=== PATIENT | female | born 1990 | race Two or more races ===

== ENCOUNTER 2020-11-10 11:34 | Emergency (ER) | payer MEDICAID ==
[~2020-11-10] VITALS: Ht 162.6 cm; Wt 73.5 kg
[~2020-11-10 11:34] MED LIST: PREN-145 OR
[2020-11-10 11:39] VITALS: BP 107/60
[2020-11-10 12:06] LABS: Basophils # (auto) 0 10 ^3/uL (0-0.2); Basophils % (auto) 0.7 % (0.0-2.0); Eosinophils # (auto) 0.1 10 ^3/uL (0-0.8); Eosinophils % (auto) 1.9 % (0.0-7.0); Hematocrit 37.5 % (36.0-46.0); Hemoglobin 13.3 g/dL (12.2-16.2); Lymphocytes % (auto) 33.4 % (10.0-50.0); Mean Corpuscular Hemoglobin 31.7 pg (28.0-32.0); Mean Corpuscular Hgb Conc. 35.5 g/dL (32.0-36.0); Mean Corpuscular Volume 89.4 fL (80.0-100.0); Monocytes # (auto) 0.4 10 ^3/uL (0-1.3); Monocytes % (auto) 7.2 % (0.0-12.0); Neutrophils # (auto) 3.4 10 ^3/uL (1.6-8.6); Neutrophils % (auto) 56.8 % (37.0-80.0); Nucleated Red Blood Cells % 0.1 %; Red Blood Cells 4.19 10^6/uL (4.0-5.20); Red Cell Distribution Width 12.4 % (11.8-14.3)
[2020-11-10 13:11] LABS: Urine Bacteria NONE SEEN /hpf (None Seen); Urine Blood Negative /uL (Negative); Urine Mucus FEW (None Seen); Urine Specific Gravity 1.012 (1.001-1.035); Urine WBC <1 /hpf (0 - 5)
== END 2020-11-10 19:34 | disposition home or self-care (01) ==
LOC: ER 11:34
DX: O02.1 Missed abortion (principal); Z79.899 Other long term (current) drug therapy; Z3A.01 Less than 8 weeks gestation of pregnancy
CPT/HCPCS: 36415; 81001; 84702; 85025

== ENCOUNTER 2024-07-01 09:45 | Observation (INO) | payer MEDICAID ==
[2024-07-01 11:07] LABS: Fern Testing Negative
--- NOTE | 2024-07-01 13:11 | DVH ---
CLINICAL HISTORY: Vaginal bleeding. Spontaneous rupture of membranes. COMPARISON: None TECHNIQUE: biophysical profile was performed. Transabdominal sonographic images of the fetus we re obtained. FINDINGS: The fetus is in transverse position, with head to the maternal right side. heart rat e measures 145 BPM. Amniotic fluid index measures 12.2 cm. The placenta is fundal in position with n o evidence of previa or abruption visualized. Cervix appears to be closed and measures 3.2 cm in fabián th. BPP profile is an overall score of 8/8, with 2/2 points for breathing, with at least one episode of breathing over a 30 second duration during a 30 minute observation, 2/2 points for m ovements, with 3 or more discrete body or limb movements, 2/2 points for tone, with one or more episodes of extremity extension with return to flexion, or opening and closing of hand, and 2/ 2 points for amniotic fluid, with at least 1 pocket of amniotic fluid that measures 2 cm in 2 perpend icular planes. IMPRESSION: 1. BPP score of 8/8. 2. Transverse orientation with head to the maternal right side. 3. Additional findings as described above.
--- NOTE | 2024-07-01 17:34 | DVHDS2 ---
Physician Discharge Progress N Final Diagnosis: IUP 35 wk, PROM ruled out Vaginal spotting (not in labor) Operations or Procedures: Operations or Procedures NST- Reactive reviewed BPP/ADA, NORMAL Fern/Amnisure tests, Negative for PROM Condition on Discharge: Stable Disposition: Home Discharge Instructions: Diet: Regular Activity: No Restrictions, As Tolerated Follow Up/Referral: PRN Medications: N/A Follow Up Care: Discharge Statement: "Patient was advised to return to the ER or call 911 if any headaches, dizziness, shortness of breath, chest pain, abdominal pain, bleeding, fevers, or worsening of medical condition. Patient was counseled about treatment plan, medications, possible side effects, patientverbalized understanding. All questions were answered to the best of my ability. This discharge took greater then 30 minutes in planning, reviewing documentation , counseling the patient, and discussing with other team members." Visit Coding OBGYN Date of Service: July 01, 2024 Billing Provider: TETO BREWER DO ASSOCIATE BRAND MANAGER Common Visit Codes: 58798-KGS/OBS SAME DATE (HIGH) ASSOCIATE BRAND MANAGER Procedure Codes: 15542-27- NON-STRESS TEST TETO BREWER DO July 01, 2024 17:34
== END 2024-07-01 13:25 | disposition home or self-care (01) ==
LOC: UNDOADMOB 09:45 → LDRP 09:45 → UNDOADMOB 09:49 → LDRP 09:49
PROVIDERS: ADMIT Obstetrics & Gynecology; ATTEND Obstetrics & Gynecology
DX: O26.853 Spotting complicating pregnancy, third trimester (principal); Z98.890 Other specified postprocedural states; Z79.899 Other long term (current) drug therapy; Z3A.35 35 weeks gestation of pregnancy
CPT/HCPCS: 59025; 76819; 81002; 84112; G0378; Q0114

== ENCOUNTER 2024-07-13 09:08 | Observation (INO) | payer MEDICAID ==
--- NOTE | 2024-07-13 12:06 | DVH ---
BIOPHYSICAL PROFILE HISTORY: Low ADA TECHNIQUE: Multiple transabdominal real-time grayscale sonographic images through the gravid uterus o f the fetus with duplex doppler color flow and M-mode spectral analysis FINDINGS: BIOPHYSICAL PROFILE: breathing score: 2 movement score: 2 tone score: 2 Quantitative ADA score: 2 (ADA: 11.7 cm.) Total score: 8/8 Single live fetus in cephalic presentation. heart rate 151 beats per minute. Fundal placenta without previa or abruption Biophysical profile score 8/8 corresponding to an JUDE of 07/31/24 IMPRESSION: Biophysical profile score: 8/8
--- NOTE | 2024-07-14 12:44 | DVHDS2 ---
Physician Discharge Progress N Final Diagnosis: ADA CHECK ,R/O ROM 37WKS Operations or Procedures: Operations or Procedures NST REACTIVE REVIWED,SONO Condition on Discharge: Good Disposition: Home Discharge Instructions: Diet: Regular Activity: Light activity Medications: NA Follow Up Care: Specialist: 2D Discharge Statement: "Patient was advised to return to the ER or call 911 if any headaches, dizziness, shortness of breath, chest pain, abdominal pain, bleeding, fevers, or worsening of medical condition. Patient was counseled about treatment plan, medications, possible side effects, patientverbalized understanding. All questions were answered to the best of my ability. This discharge took greater then 30 minutes in planning, reviewing documenta tion, counseling the patient, and discussing with other team members." Visit Coding OBGYN Date of Service: July 13, 2024 Billing Provider: MELISSA GALICIA DO CHUCKER Common Visit Codes: 26785-[id number] OBS CARE (HIGH) CHUCKER Procedure Codes: 51964-46- NON-STRESS TEST MELISSA GALICIA DO Jul 14, 2024 12:44
== END 2024-07-13 11:27 | disposition home or self-care (01) ==
LOC: LDRP 10:01
PROVIDERS: ADMIT Obstetrics & Gynecology; ATTEND Obstetrics & Gynecology
DX: O99.113 Other diseases of the blood and blood-forming organs and certain disorders involving the immune mechanism complicating pregnancy, third trimester (principal); D68.8 Other specified coagulation defects; Z3A.37 37 weeks gestation of pregnancy; Z79.899 Other long term (current) drug therapy; Z98.890 Other specified postprocedural states
CPT/HCPCS: 59025; 76819; 81002; 94760; G0378

== ENCOUNTER 2024-07-25 07:11 | Observation (INO) | payer MEDICAID ==
--- NOTE | 2024-07-25 15:24 | DVH ---
BIOPHYSICAL PROFILE HISTORY: Low ADA TECHNIQUE: Multiple transabdominal real-time grayscale sonographic images through the gravid uterus of the fetus with duplex Doppler color flow and M-mode spectral analysis FINDINGS: BIOPHYSICAL PROFILE: breathing score: 2 movement score: 2 tone score: 2 Quantitative ADA score: 2 (ADA: 9 Cm.) Total score: 8 Single live fetus in cephalic presentation. heart rate 150 beats per minute. Grade II fundal placenta without previa or abruption IMPRESSION: Biophysical profile score: 8
--- NOTE | 2024-07-25 15:40 | DVHDS2 ---
Physician Discharge Progress N Final Diagnosis: iup at 39wks yanna check Operations or Procedures: Operations or Procedures nst reactive reviewed,sono Condition on Discharge: Good Disposition: Home Discharge Instructions: Diet: Regular Activity: Light activity Medications: na Follow Up Care: Specialist: isaura for yanna check,refuses induction Discharge Statement: "Patient was advised to return to the ER or call 911 if any headaches, dizziness, shortness of breath, chest pain, abdominal pain, bleeding, fevers, or worsening of medical condition. Patient was counseled about treatment plan, medications, possible side effects, patientverbalized understanding. All questions were answered to the best of my ability. This discharge took greater then 30 minutes in planning, reviewing documentation, counseling the patient, and discussing with other team members." Visit Coding OBGYN Date of Service: Jul 25, 2024 Billing Provider: MELISSA GALICIA DO LOCK MAINTENANCE SUPERVISOR Common Visit Codes: 54648-[id number] OBS CARE (HIGH) LOCK MAINTENANCE SUPERVISOR Procedure Codes: 29196-37- NON-STRESS TEST MELISSA GALICIA DO Jul 25, 2024 15:40
== END 2024-07-25 15:50 | disposition home or self-care (01) ==
LOC: LDRP 14:00 → UNDOADMOB 14:00 → LDRP 14:04
PROVIDERS: ADMIT Obstetrics & Gynecology; ATTEND Obstetrics & Gynecology
DX: O42.913 Preterm premature rupture of membranes, unspecified as to length of time between rupture and onset of labor, third trimester (principal); Z3A.39 39 weeks gestation of pregnancy; Z79.899 Other long term (current) drug therapy
CPT/HCPCS: 59025; 76819; 81002; G0378

== ENCOUNTER 2024-07-28 07:43 | Observation (INO) | payer MEDICAID ==
--- NOTE | 2024-07-28 12:25 | DVH ---
BIOPHYSICAL PROFILE HISTORY: Oligo Comparison Study: US BIOPHYSICAL PROFILE on DOS: 07/25/24, US BIOPHYSICAL PROFILE on DOS: 07/13/24, US BIOPHYSICAL PROFILE on DOS: 07/01/24 TECHNIQUE: Multiple real-time grayscale sonographic images through the gravid uterus of the fetus wit h duplex doppler color flow and M-mode spectral analysis FINDINGS: BIOPHYSICAL PROFILE: breathing score: 2 movement score: 2 tone score: 2 Quantitative ADA score: 2 (ADA: 7.8 cm.) Total score: 8/8 Single live fetus in cephalic presentation. heart rate 150 beats per minute. Fundal placenta without previa or abruption Biophysical profile score 8/8 corresponding to an JUDE of 07/31/24 IMPRESSION: Biophysical profile score: 8/8
--- NOTE | 2024-07-28 17:45 | DVHDS2 ---
Physician Discharge Progress N Final Diagnosis: Encounter for monitoring Borderline low ADA Secondary Diagnosis: Term Operations or Procedures: Operations or Procedures NST, ADA, BPP PATIENT: KARLOS LUCAS ACCT: [id number] UNIT: [id number] : 1990 LOC: [facility] ROOM / BED: TRIAGE2 / A AGE / SEX: 34 / F ADM STATUS: ADM IN SERVICE [id number] ORDERING PHYSICIAN: TETO BREWER DO PROCEDURE(s): BPP - BIOPHYSICAL PROFILE REASON: Oligo ORDER NUMBER(s): [id number], ACCESSION NUMBER(s): [id number] BIOPHYSICAL PROFILE HISTORY: [place] Comparison Study: US BIOPHYSICAL PROFILE on DOS: 07/25/24, US BIOPHYSICAL PROFILE on DOS: 07/13/24, US BIOPHYSICAL PROFILE on DOS: 07/01/24 TECHNIQUE: Multiple real-time grayscale sonographic images through the gravid uterus of the fetus with duplex doppler color flow and M-mode spectral analysis FINDINGS: BIOPHYSICAL PROFILE: breathing score: 2 movement score: 2 tone score: 2 Quantitative ADA score: 2 (ADA: 7.8 cm.) Total score: 8/8 Single live fetus in cephalic presentation. heart rate 150 beats per minute. Fundal placenta without previa or abruption Biophysical profile score 8/8 corresponding to an JUDE of 07/31/24 IMPRESSION: Biophysical profile score: 8/8 ATED BY: MODESTO ECHAVARRIA MD Commentary: Commentary NST reassuring ADA > 5cm, not Oligohydramnios. Membranes intact NOT in labor Condition on Discharge: Stable Disposition: Home Discharge Instructions: Diet: Regular Activity: No Restrictions, As Tolerated Follow Up/Referral: as scheduled Medications: NA Follow Up Care: Discharge Statement: "Patient was advised to return to the ER or call 911 if any headaches, dizziness, shortness of breath, chest pain, abdominal pain, bleeding, fevers, or worsening of medical condition. Patient was counseled about treatment plan, medications, possible side effects, patientverbalized understanding. All questions were answered to the best of my ability. This discharge took greater then 30 minutes in planning, reviewing documentation, counseling the patient, and discussing with other team members." Visit Coding OBGYN Date of Service: Jul 28, 2024 Billing Provider: TETO BREWER DO COKE LOADER Common Visit Codes: 20443-MFX/OBS SAME DATE (MOD) COKE LOADER Procedure Codes: 49083-97- NON-STRESS TEST TETO BREWER DO Jul 28, 2024 17:45
== END 2024-07-28 12:57 | disposition home or self-care (01) ==
LOC: LDRP 11:11
PROVIDERS: ADMIT Obstetrics & Gynecology; ATTEND Obstetrics & Gynecology
DX: O42.913 Preterm premature rupture of membranes, unspecified as to length of time between rupture and onset of labor, third trimester (principal); O60.03 Preterm labor without delivery, third trimester; Z3A.39 39 weeks gestation of pregnancy; Z79.899 Other long term (current) drug therapy; Z98.890 Other specified postprocedural states
CPT/HCPCS: 59025; 76819; 81002; 94760; G0378

== ENCOUNTER 2024-07-30 19:16 | Inpatient (IN) | payer MEDICAID ==
[~2024-07-30] VITALS: Ht 162.6 cm; Wt 88.0 kg
[2024-07-30] MEDS ORDERED: LIDOCAINE 2%HCL (LOCAL ANESTH.) INJ 20ML MDV IJ PRN (19:45)
[2024-07-30] MEDS ORDERED: LACTATED RINGER'S 1,000 ML IV SCH (19:45)
--- NOTE | 2024-07-30 20:16 | DVHHP2 ---
OB CC & HPI Date Date of Admission: Jul 30, 2024 Patient Identification: : 4 Para: 3 EDC: Jul 31, 2024 EGA: 39.6 wks Chief Complaints: Reason for admission: induction of labor (for borderline oligohydramnios) Admission Nurse Assessment Rev: Yes History of Present Complaints 34yo IUP@ 39.6 wks presents to L&D for scheduled IOL for borderline Oligohydramnios per Dr Santiago (ADA 6cm in office). Denies UCs/LOF/VB/ARMSTRONG/vision changes/RUQ pain. Endorses +FM. PNC: Routine PNC at [facility] OB with Dr Santiago, adequate visits, PNC uncomplicated. GTT wnl, dating based on LMP c/w 7wk sono, GBS negative. OB hx: x3 (2008, 2012, and 2013) full term and approx 6lbs each, denies PPH or complications Past Medical History Cardiac: No pertinent Hx Pulmonary: No pertinent Hx Central Nervous System: No pertinent Hx GI: No pertinent Hx Hemotology/Oncology: No pertinent Hx Hepatobiliary: No pertinent Hx Psychiatric: No pertinent Hx Musculoskeletal: No pertinent Hx Rheumotologic: No pertinent Hx Infectious Disease: No peritnent Hx ENT: No pertinent Hx Renal/: No pertinent Hx Endocrine: No pertinent Hx Dermatology: No pertinent Hx Past Surgical History: No pertinent Hx OB History OB History Care: Good Care Ultrasounds: Normal mid trimester US Obstetrical Complications: None Medical Complications: None Allergies: Coded Allergies: NO KNOWN ALLERGIES (Unverified , 09/27/13) Allergies NKA Home Meds Reported Medications Vit W/ Ferrous Fumara (PNV FOLIC ACID + IRON MUL) + Iron Tab, 1 IRON OR, TAB 09/28/13 Home Meds PNV Current Medications Current Medications Medications (Trade) Dose Ordered Sig/Colin Route PRN Reason Start Time Stop Time Status Last Admin Lactated Ringer's 1,000 ml @ 125 mls/hr Q8H IV 07/30/24 19:45 UNV Nalbuphine HCl (Nubain) 10 mg Q4HP PRN IV MODERATE PAIN (4-6 PAIN SCALE) 07/30/24 19:45 UNV Witch Suzan (Tucks) 1 pad PRN PRN TOP PERINEAL AREA DISCOMFORT 07/30/24 19:45 UNV Sodium Lauryl Sulfate (Phisoderm) 240 ml PRN PRN TOP PERINEAL AREA DISCOMFORT 07/30/24 19:45 UNV Benzocaine (Dermoplast) 1 applic PRN PRN TOP PERINEAL AREA DISCOMFORT 07/30/24 19:45 UNV Misoprostol (Cytotec) 50 mcg Q4HPRN PRN PO CERVICAL RIPENING 07/30/24 19:45 UNV Lidocaine HCl (Xylocaine) 40 ml ONCE PRN IJ PERINEAL AREA DISCOMFORT 07/30/24 19:45 UNV Family & Social History Family/Social History Past Family/Social History: Mother and Father: HTN Blood Type: A+ Rubella: immune RPR/VDRL: Negative GBS Status: Negative HBsAG: Negative Review of Systems Constitutional: No symptom reported Ears, Nose, & Throat: No symptom reported Eyes: No symptom reported Pulmonary/Respiratory: No symptom reported Cardiovascular: No symptom reported Gastrointestinal: No symptom reported Genitourinary: No symptom reported Musculoskeletal: No symptom reported Skin: No symptom reported Psychiatric: No symptom reported Endocrine: No symptom reported Hemotologic/Lymphatic: No symptom reported OB Admission Exam Physical Exam Vitals: VSS, see chart HEENT: TMs Normal, Fontanelles Normal, Nasal Mucosa Normal, Eyes non-injected, Oropharynx Normal, PERRLA, Moist Membranes, EOMI Heart: Rhythm Normal Lungs: Clear Abdomen: Gravid Extremities: Normal Reflexes: Normal Pelvic Exam: SVE by CNM: 1/30%/-3, vertex EFW in office on 07/26/24: 7lbs 2oz Membranes: Intact Amniotic Fluid: Clear Heart Rate: 130's Accelerations: Accelerations Present Decelerations: No Decelerations Halfway Variability: Average (6-25) Contractions on Admission: None OB Plan Plan Admitting Diagnosis: 89yo IUP@39.6 wks Induction of Labor for borderline oligohydramnios Category I EFM Intact Membranes GBS negative Plan: Induction Induction Methd: Misoprostol protocol Other Plan: Admit to L&D Informed consent obtained Discussed risks, benefits, alternatives of IOL for oligohydramnios with pt. Pt consents to IOL with cytotec. monitoring per order Routine labs ordered Pain mgmt PRN Frequent position changes in and out of bed encouraged Limit SVE unless necessary Intrauterine resuscitation PRN Anticipate CNM will consult with Dr. Santiago PRN Visit Coding OBGYN Date of Service: Jul 30, 2024 Billing Provider: MAKAYLA GUZMÁN CNM [employer] DEAN Common Visit Codes: [id number] INP/OBS CARE (MOD) HE[employer] DEAN Procedure Codes: 02346-98- NON-STRESS TEST MERYL GALEANO STUDENTMDW Jul 30, 2024 20:16
[2024-07-30] MEDS: PHISODERM TOP SOLN 240ML BTL TOP PRN (20:44)
[2024-07-30] MEDS: WITCH HAZEL-GLYCERIN PAD TOP PRN (20:44)
[2024-07-30] MEDS: DERMOPLAST 60ML BOTTLE TOP PRN (20:44)
[2024-07-30 20:47] LABS: Basophils # (auto) 0 10 ^3/uL (0-0.2); Basophils % (auto) 0.4 % (0.0-2.0); Eosinophils # (auto) 0.1 10 ^3/uL (0-0.8); Eosinophils % (auto) 0.7 % (0.0-7.0); Hematocrit 34.5 % (36.0-46.0); Hemoglobin 11.7 g/dL (12.2-16.2); Lymphocytes # (auto) 1.6 10 ^3/uL (0.4-5.4); Lymphocytes % (auto) 18.6 % (10.0-50.0); Mean Corpuscular Hemoglobin 29.6 pg (28.0-32.0); Mean Corpuscular Hgb Conc. 34.1 g/dL (32.0-36.0); Monocytes # (auto) 0.7 10 ^3/uL (0-1.3); Monocytes % (auto) 7.9 % (0.0-12.0); Neutrophils # (auto) 6.1 10 ^3/uL (1.6-8.6); Neutrophils % (auto) 72.4 % (37.0-80.0); Nucleated Red Blood Cells % 0.1 %; Platelet Count (auto) 235 10^3/uL (140-450); Red Blood Cells 3.96 10^6/uL (4.0-5.20); Red Cell Distribution Width 14.1 % (11.8-14.3); White Blood Cell 8.5 10^3/uL (4.4-10.8)
[2024-07-30 21:02] LABS: Alanine Aminotransferase 12 U/L (7-40); Albumin 3.9 g/dL (3.2-4.8); Anion Gap 11 (5-15); Aspartate Aminotransferase 13 U/L (<34); Bilirubin, Total 0.7 mg/dL (0.2-1.0); Calcium 9.5 mg/dL (8.7-10.4); Carbon Dioxide 22 mmol/L (20-31); Glucose 89 mg/dL (74-106); Potassium 3.8 mmol/L (3.5-5.1); Sodium 141 mmol/L (136-145); Total Protein 6.1 g/dL (5.7-8.2)
[2024-07-30 21:03] LABS: INR 0.92 (0.9-1.15); Partial Thromboplastin Time 24.5 SEC (24.5-34.5); Prothrombin Time 9.8 sec (9.3-11.8)
[2024-07-30 21:06] LABS: Urine Bacteria None Seen /hpf (None Seen)
[2024-07-30 21:10] LABS: Urine Blood Negative /uL (Negative); Urine Clarity Clear (Clear); Urine Color Colorless (Yellow); Urine Protein, UAD Negative (Negative); Urine Specific Gravity 1.007 (1.001-1.035); Urine Squamous Epithelial Cell FEW /hpf (<5); Urine Urobilinogen Normal (Negative); Urine WBC 1 /HPF (0-5); Urine pH 6.5 (5.0-9.0)
[2024-07-30 21:14] LABS: Alkaline Phosphatase 240 U/L (46-116); BUN/Creatinine Ratio 9.8 (10.0-20.0); Blood Urea Nitrogen < 5 mg/dL (9-23); Chloride 108 mmol/L (98-107)
[2024-07-30 21:38] LABS: Amphetamine Screen, Urine Neg (NEGATIVE); Barbiturate Scree,Urine Neg (NEGATIVE); Benzodiazephine Screen, Urine Neg (NEGATIVE); Cannabinoid Screen, Urine Neg (NEGATIVE); Cocaine Screen, Urine Neg (NEGATIVE); Opiate Scree,Urine Neg (NEGATIVE); Phencyclidine Screen, Urine Neg (NEGATIVE)
[2024-07-30] MEDS: miSOPROStol 50 MCG per PRE-CUT 1/2 TAB PO PRN (22:00)
[2024-07-31] MEDS: NALBUPHINE HCL 10 MG/1ml INJECTION IV PRN (03:15)
--- NOTE | 2024-07-31 08:06 | DVHPN2 ---
Chief Complaints Patient reports: No new complaints Nursing reports: No new complaints Objective Vitals Vital Signs Date Time Temp Pulse Resp B/P (MAP) Pulse Ox O2 Delivery O2 Flow Rate FiO2 07/31/24 03:15 79 16 102/53 Medications Current Medications Medications (Trade) Dose Ordered Sig/Colin Route PRN Reason Start Time Stop Time Status Last Admin Benzocaine (Dermoplast) 1 applic PRN PRN TOP PERINEAL AREA DISCOMFORT 07/30/24 19:45 07/30/24 20:44 Lactated Ringer's 1,000 ml @ 125 mls/hr Q8H IV 07/30/24 19:45 Lidocaine HCl (Xylocaine) 40 ml ONCE PRN IJ PERINEAL AREA DISCOMFORT 07/30/24 19:45 Misoprostol (Cytotec) 50 mcg Q4HPRN PRN PO CERVICAL RIPENING 07/30/24 19:45 07/31/24 02:00 Nalbuphine HCl (Nubain) 10 mg Q4HP PRN IV MODERATE PAIN (4-6 PAIN SCALE) 07/30/24 19:45 07/31/24 03:15 Oxytocin 1,000 ml @ 6 ml/hr Q24H IV 07/31/24 07:45 Sodium Lauryl Sulfate (Phisoderm) 240 ml PRN PRN TOP PERINEAL AREA DISCOMFORT 07/30/24 19:45 07/30/24 20:44 Witch Suzan (Tucks) 1 pad PRN PRN TOP PERINEAL AREA DISCOMFORT 07/30/24 19:45 07/30/24 20:44 Others ve-3cm/60/-2 Studies Laboratory Tests 07/30/24 20:31 Test 07/30/24 20:31 Range/Units Serum Glucose 89 74-106 mg/dL Ass/Plan Assessment iol Plan start pitocin Visit Coding OBGYN Date of Service: Jul 31, 2024 Billing Provider: MELISSA GALICIA DO MIXER CRANE OPERATOR Common Visit Codes: 04560-[id number] OBS CARE (HIGH) MIXER CRANE OPERATOR Procedure Codes: 17515-64- NON-STRESS TEST MELISSA GALICIA DO Jul 31, 2024 08:06
[2024-07-31] MEDS: ePHEDrine SULFATE 50 MG/ML AMP ONE (08:08)
[2024-07-31] MEDS: ROPIVACAINE HCL 200 ML ONE (08:39)
[2024-07-31] MEDS ORDERED: LACTATED RINGER'S 1,000 ML IV ONE (10:00)
[2024-07-31] MEDS ORDERED: ePHEDrine SULFATE 50 MG/ML AMP IV ONE (10:00)
[2024-07-31] MEDS: LACT. RINGERS/OXYTOCIN 20UNITS 1,000 ML IV SCH (10:16)
[2024-07-31] MEDS: ONDANSETRON HCL 4 MG/2 ML VIAL IV PRN (11:02)
[2024-07-31] MEDS: LACT. RINGERS/OXYTOCIN 20UNITS 500 ML IV ONE ×2 (12:36→14:36)
--- NOTE | 2024-07-31 13:03 | LDN2 ---
Labor and Delivery Note Date 07/31/24 Age 34 4 Para 4 EDC 6-18 EGA 40wks, Diagnosis iol for oligo,ama Vaginal Delivery: VTX Vacuum Assisted: No Placenta: Spontaneous Sex: Female Weight 6-11 Apgars 9-9 Nuchal Cord Transected: No Amniotic Fluid: Clear Anesthesia epidural Episiotomy: No Extension: No EBL 300ml Labs Blood Bank 07/30/24 20:31: Blood Type A POSITIVE Complications none Conditions stable Comments/Significant Med Jewell spec exam no cxal lac Visit Coding OBGYN Date of Service: Jul 31, 2024 Billing Provider: MELISSA GALICIA DO PARTITION SETTER Common Visit Codes: 06540-[id number] OBS CARE (HIGH) PARTITION SETTER Procedure Codes: 86565-MMM DELIVERY ONLY MELISSA GALICIA DO Jul 31, 2024 13:03
[2024-07-31 15:00] VITALS: BP 115/57; PULSE 100; RESP 18; TEMP 98.7
[2024-07-31] MEDS: IBUPROFEN 600 MG TAB PO PRN (17:05)
[2024-07-31 18:49] VITALS: BP 106/57; PULSE 84; RESP 16; TEMP 97.8
[2024-07-31] MEDS: ACETAMINOPHEN 325 MG TAB PO PRN (19:27)
[2024-07-31] MEDS ORDERED: IBU600T PO (21:28)
[2024-07-31] MEDS ORDERED: DOCU-265 PO (21:28)
[2024-07-31] MEDS ORDERED: PREN-96 PO (21:28)
[2024-07-31] MEDS: DOCUSATE SOD 100 MG CAP PO ONE (22:00)
[2024-07-31 23:04] VITALS: BP 101/51; PULSE 87; RESP 16; TEMP 99.1
--- NOTE | 2024-08-01 00:32 | DVHPN2 ---
Progress Note Date Seen: Aug 01, 2024 Subjective S: bleeding is less, eating food without issues, denies lightheaded/dizziness, pain well controlled with oral medications, no concerns with urinating, passing flatus, no BM yet, ambulating well, well vital signs Vital Sign Date Time Temp Pulse Resp B/P (MAP) Pulse Ox O2 Delivery O2 Flow Rate FiO2 08/01/24 00:02 98.0 07/31/24 23:04 87 16 101/51 (68) 07/31/24 19:00 Room Air Total Intake and Output 07/31/24 07/31/24 08/01/24 15:00 23:00 07:00 Output Total 200 ml Balance -200 ml medications Current Medications Medications Dose Ordered Sig/Colin Route Start Time Stop Time Status Last Admin Dose Admin Ricky Mares 1 pad PRN PRN TOP 07/30/24 19:45 07/30/24 20:44 1 PAD Sodium Lauryl Sulfate 240 ml PRN PRN TOP 07/30/24 19:45 07/30/24 20:44 240 ML Benzocaine 1 applic PRN PRN TOP 07/30/24 19:45 07/30/24 20:44 1 APPLIC Ondansetron HCl 4 mg Q4HPRN PRN IV 07/31/24 10:45 07/31/24 11:02 4 MG Ibuprofen 600 mg Q6HP PRN PO 07/31/24 13:45 08/01/24 00:02 600 MG Acetaminophen 650 mg Q4HP PRN PO 07/31/24 13:45 07/31/24 19:27 650 MG laboratory and microbiology Laboratory Tests 07/30/24 20:31 Test 07/30/24 20:31 Range/Units Serum Glucose 89 74-106 mg/dL Objective O: VSS Chest: heart sounds normal and lung sounds clear bilaterally Abd: soft, non-tender, fundus at U/firm/midline, active bowel sounds, no rebound or guarding Perineum: intact, no erythema/edema noted Ext: Non-tender, No edema Lochia: minimal See lab results Problems(with codes): (1) (normal spontaneous vaginal delivery) (2) Intact perineum Assessment/Plan A: 34yo now PPD#1 s/p Rh+ Rubella Immune Pain control with PO medications Bowel regimen P: D/C home today Rx sent to pharmacy precautions and preeclampsia warning signs reviewed F/U with [facility] OB office in 2 weeks Plan discussed with: Patient, Other (partner) Visit Coding OBGYN Date of Service: Aug 01, 2024 Billing Provider: MAKAYLA GUZMÁN CNM OCULAR CARE AIDE Common Visit Codes: [id number] INP/OBS CARE(LOW) MERYL GALEANO STUDENTMDW Aug 01, 2024 00:32
--- NOTE | 2024-08-01 00:35 | DVHDS2 ---
Obstetrics Discharge Summary Obstetrics Discharge Summary Date of Admission: Jul 30, 2024 Date of Discharge: Aug 01, 2024 Reason For Admission: Induction of Labor Procedures: NST Intrapartum Procedures: Spontaneous vaginal deliv Procedures: None, Hct/date: (08/01/24), Hgb/date: (08/01/24) Operative Complicat: None Discharge Diagnosis: Term -Delivered Discharge Information: Activity (as tolerated, no heavy lifting and nothing in the vagina for 6 weeks), Diet (Routine), Medications (RX sent), Instructions (Routine), Discharge to (Home), Accompanied by (partner), Discarge date (08/01/24) Visit Coding OBGYN Date of Service: Aug 01, 2024 Billing Provider: MAKAYLA GUZMÁN CNM DOOR PATCHER Common Visit Codes: 53633-AQC/OBS DISCH DAY <30MIN MERYL GALEANO STUDENTMDW Aug 01, 2024 00:35
[2024-08-01 03:00] VITALS: BP 94/55; PULSE 74; RESP 15; TEMP 98.6
[2024-08-01 06:49] LABS: Basophils # (auto) 0 10 ^3/uL (0-0.2); Basophils % (auto) 0.1 % (0.0-2.0); Eosinophils # (auto) 0.1 10 ^3/uL (0-0.8); Eosinophils % (auto) 0.6 % (0.0-7.0); Hematocrit 32.6 % (36.0-46.0); Lymphocytes # (auto) 1.7 10 ^3/uL (0.4-5.4); Lymphocytes % (auto) 15.2 % (10.0-50.0); Mean Corpuscular Hemoglobin 29.7 pg (28.0-32.0); Mean Corpuscular Hgb Conc. 33.8 g/dL (32.0-36.0); Mean Corpuscular Volume 87.8 fL (80.0-100.0); Monocytes # (auto) 0.7 10 ^3/uL (0-1.3); Monocytes % (auto) 6.2 % (0.0-12.0); Neutrophils # (auto) 8.6 10 ^3/uL (1.6-8.6); Neutrophils % (auto) 77.9 % (37.0-80.0); Nucleated Red Blood Cells % 0.1 %; Platelet Count (auto) 211 10^3/uL (140-450); Red Blood Cells 3.71 10^6/uL (4.0-5.20)
[2024-08-01 07:10] VITALS: BP 104/59; PULSE 78; RESP 18; TEMP 98.2; O2SAT 97
[2024-08-01 11:00] VITALS: BP 110/63; PULSE 91; RESP 18; TEMP 98.1; O2SAT 98
[2024-08-01] MEDS: TETANUS-DIPTH-ACEL PERTUSSIS 0.5ML SYR Tdap IM ONE (12:14)
== END 2024-08-01 13:45 | disposition home or self-care (01) | DRG 560 ==
LOC: LDRP 19:16
PROVIDERS: ADMIT Obstetrics & Gynecology; ATTEND Obstetrics & Gynecology
PROC: 10E0XZZ Delivery of Products of Conception, External Approach (ICD-10-PCS; principal; 2024-07-31)
PROC: 3E033VJ Introduction of Other Hormone into Peripheral Vein, Percutaneous Approach (ICD-10-PCS; 2024-07-31)
PROC: 3E0R3BZ Introduction of Anesthetic Agent into Spinal Canal, Percutaneous Approach (ICD-10-PCS; 2024-07-31)
PROC: 00HU33Z Insertion of Infusion Device into Spinal Canal, Percutaneous Approach (ICD-10-PCS; 2024-07-31)
DX: O41.03X0 Oligohydramnios, third trimester, not applicable or unspecified (principal); Z37.0 Single live birth; Z3A.39 39 weeks gestation of pregnancy
CPT/HCPCS: 36415; 59025; 59409; 62282; 80053; 80307; 81001; 85025; 85610; 85730; 86780; 86850; 86900; 86901; 90715; 94760; 94762; 96360; 96361; 96374; 96375; G0378; J2405; J2590